=== PATIENT | female | born 1980 | race Caucasian/White ===

== ENCOUNTER 2017-01-19 02:30 | Emergency (ER) | payer BC ==
--- NOTE | 2017-01-19 04:14 | ER NURSING DOCUMENTATION ---
Nurse's Notes [facility] Name:Zaida Hood Age:36 yrs Sex:Female :1980 Arrival Date:01/19/2017 Time:02:30 BedTrauma-C Private MD:Shreya Osborne Diagnosis:Chest Pain, Other Presentation: 01/19 02:50 Acuity: TING 3 lb 02:52 Presenting complaint: Patient states: chest heaviness tonight, worse with movement. lb denies n/v or shortness of breath. Transition of care: patient was not received from another setting of care. AIR CAT ACTIVATION no. Asprin Given n/a. Notified ED Physician of Josef Nicolas notified. 02:52 Method Of Arrival: Walk In Triage Assessment: 02:58 General: Appears in no apparent distress, Behavior is. Pain: Complains of pain in lb mid-sternal area Pain does not radiate. Pain currently is 5 out of 10 on a pain scale. Cardiovascular: No deficits noted. Historical: - Allergies: PENICILLINS; - Home Meds: 1. None - PMHx: None; - PSHx: None; - Tetanus: < 10 years. - Ebola Screening: : Patient denies exposure to infectious person. Patient denies travel to an Ebola-affected area in the 21 days before illness onset. . - Immunization history: Flu Vaccine None. - Social history: Smoking status: Patient states was never smoker of tobacco. Patient/guardian denies using alcohol. Screenin:01 Infectious Disease Risk None. Abuse screen: Denies threats or abuse. Denies injuries lb from another. Nutritional screening: No deficits noted. Assessment: 03:01 See Triage Assessment done by same RN. Pain: Pain began 4 hours ago Aggravated by lb increased activity. Vital Signs: 03:00 BP 120 / 83; Pulse 75; Resp 14; Pulse Ox 95% on R/A; Weight 68.04 kg; Height 5 ft. 7 lb in. (170.18 cm); Pain 5/10; 04:12 BP 101 / 53; Pulse 65; Resp 14; Pulse Ox 95% on R/A; lb 03:00 Body Mass Index 23.49 (68.04 kg, 170.18 cm) lb ED Course: 02:41 Patient arrived in ED. em2 02:41 Physician, No is Private Physician. em2 02:50 Bollock, Spring is Primary Nurse. lb 02:50 Triage completed. lb 02:55 Damon Bahena MD is Attending Physician. prabhakar 03:00 EKG done per protocol. lb 03:01 Valuables Remains with patient Patient has correct armband on for positive lb identification. Placed in gown. Bed in low position. Call light in reach. accountant tax on. Pulse ox on. NIBP on. 03:02 Inserted peripheral IV: 20 gauge in right antecubital area and blood collected. lb 04:13 Oxygen O2 via not ordered. lb Administered Medications: No medications were administered Outcome: 03:27 Discharge ordered by . prabhakar 04:12 Discharged to home ambulatory. lb 04:12 Condition: good 04:12 Discharge Assessment: Patient awake, alert and oriented x 3. No cognitive and/or functional deficits noted. Patient verbalized understanding of disposition instructions. 04:12 Instructed on discharge instructions, follow up and referral plans. 04:12 IV D/Jose Eduardo 04:13 Patient left the ED. lb 01/20 09:44 Discharge F/U Call: Spoke with: patient. other: Name: pt is feeling much better st today. pt states she had improving symptoms all day yesterday and today has no symptoms. Signatures: Kelly Muir, RN Damon Sparrow MD MD jm Meinking-reg, Bandar em2 Spring Chinchilla
--- NOTE | 2017-01-19 04:14 | ER PHYSICIAN DOCUMENTATION ---
Physician Documentation [facility] Name:Zaida Hood Age:36 yrs Sex:Female :1980 Arrival Date:01/19/2017 Time:02:30 BedTrauma-C Private MD:Physician, No ED Damon Rodriguez Disposition: 01/19/17 03:27 Discharged to Home/Self Care. Impression: Chest Pain, Other. - Condition is Good. - Discharge Instructions: Chest Pain - CHEST PAIN, Uncertain Cause. - Medical Reconciliation form form. - Follow up: Private Physician; When: As needed; Reason: Continuance of care. - Problem is new. - Symptoms have improved. HPI: 01/19 03:14 This 36 yrs old Female presents to ER via Walk In with complaints of Chest jm Tightness. 03:14 The patient or guardian reports chest pain that is located primarily in the substernal jm area. The pain does not radiate. There has been no movement of pain. Associated signs and symptoms: Pertinent positives: diaphoresis, shortness of breath. The chest pain is described as a heaviness. Duration: The patient or guardian reports a single episode, that lasted 3 hour(s). Modifying factors: the symptoms are aggravated by nothing. Severity of pain: in the emergency department the pain is a 5 / 10. The patient has not experienced similar symptoms in the past. The patient has not recently seen a physician. 36 yo F [place] who just got up here 12 hours ago here for Chest tightness. She noted when she went to sleep, but woke up in a panic w diaphoresis, SOB, and continued CP. Pt denies any hx. She is on OCP. Pt has never been to altitude before. . Historical: - Allergies: PENICILLINS; - Home Meds: 1. None - PMHx: None; - PSHx: None; - Tetanus: < 10 years. - Ebola Screening: : Patient denies exposure to infectious person. Patient denies travel to an Ebola-affected area in the 21 days before illness onset. . - Immunization history: Flu Vaccine None. - Social history: Smoking status: Patient states was never smoker of tobacco. Patient/guardian denies using alcohol. ROS: 03:16 Constitutional: Negative for fatigue, fever. jm 03:16 ENT: Negative for rhinorrhea, sinus congestion, sinus pain, sore throat. 03:16 Cardiovascular: Positive for chest pain. 03:16 Respiratory: Positive for shortness of breath. 03:16 Abdomen/GI: Negative for abdominal pain, nausea, vomiting, diarrhea. 03:16 Back: Negative for radiated pain. 03:16 MS/extremity: Negative for swelling, tenderness. 03:16 Skin: Positive for diaphoresis, Negative for swelling. 03:16 Neuro: Negative for dizziness, headache. 03:16 Psych: Negative for drug dependence, alcohol dependence. 03:16 All other systems are negative. Exam: 03:17 Constitutional: The patient appears alert, awake, comfortable. 03:17 Eyes: Periorbital structures: appear normal, Conjunctiva: normal. 03:17 ENT: Mouth: is normal, Voice: is normal. 03:17 Chest/axilla: Inspection: normal, Palpation: is normal, tenderness, is not appreciated. 03:17 Cardiovascular: Rate: normal, Rhythm: regular, Pulses: no pulse deficits are appreciated. 03:17 Respiratory: Respirations: normal, no acute changes, Breath sounds: are normal. 03:17 Back: pain, is absent, CVA tenderness, is absent. 03:17 Musculoskeletal/extremity: DVT Exam: No signs of deep vein thrombosis. Calves: are non-tender, have equal circumference. 03:17 Skin: Appearance: Color: pink, diaphoresis is not appreciated, Turgor: is excellent. 03:17 Neuro: Mentation: is normal, Memory: is normal. 03:17 Psych: Behavior/mood is pleasant, cooperative, anxious, Affect is calm. Vital Signs: 03:00 BP 120 / 83; Pulse 75; Resp 14; Pulse Ox 95% on R/A; Weight 68.04 kg; Height 5 ft. 7 lb in. (170.18 cm); Pain 5/10; 04:12 BP 101 / 53; Pulse 65; Resp 14; Pulse Ox 95% on R/A; lb 03:00 Body Mass Index 23.49 (68.04 kg, 170.18 cm) lb MDM: 02:55 Patient medically screened. 03:18 Differential diagnosis: chest wall pain, gastritis, altitude related anxiety/CP. The patient was not given aspirin in the Emergency Department due to. Data reviewed: vital signs, nurses notes, lab test result(s), EKG, and as a result, I will discharge patient. Test interpretation: by ED physician or midlevel provider: ECG. Counseling: I had a detailed discussion with the patient and/or guardian regarding: the historical points, exam findings, and any diagnostic results supporting the discharge/admit diagnosis, lab results, the need for outpatient follow up, with the patient's primary care provider. ECG:. 01/19 03:22 Order name: TROPONIN I; Complete Time: 03:25 EDMS 01/19 03:19 Order name: 12-lead EKG; Complete Time: 04:14 01/19 03:19 Order name: Continuous Cardiac Monitoring; Complete Time: 04:14 01/19 03:19 Order name: Iv Saline Lock; Complete Time: 04:14 01/19 03:19 Order name: Pulse Ox Continuous; Complete Time: 04:14 EC:18 Rhythm is regular. QRS [place] is Normal. ID interval is normal. QRS interval is normal. QT interval is normal. No Q waves. T waves are Normal. No ST changes noted. Dispensed Medications: No medications were administered Signatures: Damon Bahena MD MD jm Bollock, Lynda lb
== END 2017-01-19 04:14 | disposition home or self-care (01) ==
LOC: ER 02:30
DX: R07.89 Other chest pain (principal); R06.02 Shortness of breath; R61 Generalized hyperhidrosis
CPT/HCPCS: 84484; 93005; 99285